=== PATIENT | male | born 1955 | race Caucasian/White ===

== ENCOUNTER → 2016-03-20 | Outpatient (CLI) | payer BC ==
[~2016-03-20] VITALS: Ht 177.8 cm; Wt 94.8 kg
[~2016-03-20] MED LIST: CLARITIN10 M3 PO; DEXILANT60 MG PO; DIOVAN80 MG PO; ENDOCET 5-3251 EACH PO; FLONASE16 G1 BOTH NARES; HYDROCODONE CO120 ML PO; LO-DOSE ASPIRIN81 M1 PO; LOSARTAN POTAS100 MG PO; NEXIUM40 MG PO; NORVASC5 MG PO; PROAIR HFA8.5 GM IH; SYMBICORT60 INHALAT IH; TUDORZA PRESS400 MCG IH; VENTOLIN HFA18 GM IH; ZOLOFT50 MG PO
[2016-03-20 12:35] LABS: POINT-OF-CARE METER ID UU13113694
[2016-03-20 15:02] LABS: POINT-OF-CARE METER ID UU13113675
== END | disposition home or self-care (01) ==
LOC: AMB 11:46
PROVIDERS: Internal Medicine Gastroenterology
DX: K31.7 Polyp of stomach and duodenum (principal); E11.9 Type 2 diabetes mellitus without complications; K21.9 Gastro-esophageal reflux disease without esophagitis; R05 Cough; Z85.060 Personal history of malignant carcinoid tumor of small intestine; Z85.020 Personal history of malignant carcinoid tumor of stomach; J44.9 Chronic obstructive pulmonary disease, unspecified; I10 Essential (primary) hypertension; Z79.82 Long term (current) use of aspirin; J30.9 Allergic rhinitis, unspecified; Z88.0 Allergy status to penicillin; Z88.8 Allergy status to other drugs, medicaments and biological substances
CPT/HCPCS: 82948; 86316 90; 88305; C1726; J0330; J2405; J3010

== ENCOUNTER 2017-03-11 20:50 | Emergency (ER) | payer OTHER ==
[~2017-03-11] VITALS: Ht 177.8 cm; Wt 94.1 kg
[2017-03-12] MEDS ORDERED: FLEXERIL10 MG PO (00:13)
[2017-03-12] MEDS ORDERED: NAPROSYN500 MG PO (00:13)
[2017-03-12 00:44] VITALS: BP 139/81
== END 2017-03-12 00:44 | disposition home or self-care (01) ==
LOC: EME 20:50
DX: M54.2 Cervicalgia (principal); K21.9 Gastro-esophageal reflux disease without esophagitis; I10 Essential (primary) hypertension; J45.909 Unspecified asthma, uncomplicated; V53.5XXA Driver of pick-up truck or van injured in collision with car, pick-up truck or van in traffic accident, initial encounter; Y92.410 Unspecified street and highway as the place of occurrence of the external cause; Z79.82 Long term (current) use of aspirin; Z79.891 Long term (current) use of opiate analgesic; Z90.49 Acquired absence of other specified parts of digestive tract
CPT/HCPCS: 72040; 99281; 99283

== ENCOUNTER 2017-03-25 19:41 | Emergency (ER) | payer BC ==
[~2017-03-25] VITALS: Ht 177.8 cm; Wt 93.3 kg
[~2017-03-25 19:41] MED LIST changes: +FLEXERIL10 MG PO; +NAPROSYN500 MG PO
[2017-03-25 20:31] LABS: HEMATOCRIT 47.4 % (38.0-50.0); HEMOGLOBIN 16.8 G/DL (12.5-16.6); MCH 29.7 PG (29.0-34.0); MCHC 35.4 G/DL (30.0-36.0); MCV 83.7 FL (86-99); PLATELET COUNT 186 K/uL (156-360); RBC DIS.WIDTH-CV 12.2 % (11.8-14.6); RBC DIS.WIDTH-SD 36.9 % (39-53); RED BLOOD COUNT 5.66 M/uL (4.00-5.50); WHITE BLOOD COUNT 10.2 K/uL (4.1-10.2)
[2017-03-25 20:37] LABS: APPEARANCE CLEAR ((CLEAR)); BILIRUBIN NEGATIVE; BLOOD NEGATIVE; COLOR STRAW ((YELLOW)); GLUCOSE (STRIP) >=500; KETONES NEGATIVE; LEUKOCYTES NEGATIVE; NITRITE NEGATIVE; PROTEIN (STRIP) NEGATIVE; SPECIFIC GRAVITY 1.031 (1.000-1.030); UCUL ADDED? NO; UROBILINOGEN 0.2 MG/DL (0.2-1.0)
[2017-03-25 20:42] LABS: ALBUMIN 4.3 g/dL (3.2-4.8); CHLORIDE 98 mEq/L (99-109); POTASSIUM 3.9 mEq/L (3.7-5.4); SODIUM 130 mEq/L (136-147)
[2017-03-25 20:45] LABS: TOTAL PROTEIN 7.1 g/dL (6.4-8.3)
[2017-03-25 20:46] LABS: TOTAL BILIRUBIN 1.1 mg/dL (0.0-1.0)
[2017-03-25 20:48] LABS: ALKALINE PHOSPHATASE 121 IU/L (3-129); CREATININE 1.6 mg/dL (0.6-1.3); GFR ESTIMATE (CALCULATED) 47 mL/min/ (58.99-99999)
[2017-03-25 20:49] LABS: UREA NITROGEN (BUN) 13 mg/dL (9-23)
[2017-03-25 20:50] LABS: AST (GOT) 35 IU/L (2-34)
[2017-03-25 20:51] LABS: ALT (GPT) 67 IU/L (3-49)
[2017-03-25 21:06] LABS: GLUCOSE 498 mg/dL (70-99)
[2017-03-25 22:45] LABS: CARBON DIOXIDE (BICARBONATE) 23.1 MEQ/L (20-31)
[2017-03-25 23:01] LABS: ALBUMIN 4.2 g/dL (3.2-4.8); CHLORIDE 102 mEq/L (99-109); POTASSIUM 3.8 mEq/L (3.7-5.4); SODIUM 131 mEq/L (136-147)
[2017-03-25 23:03] LABS: TOTAL PROTEIN 6.8 g/dL (6.4-8.3)
[2017-03-25 23:07] LABS: ALKALINE PHOSPHATASE 113 IU/L (3-129); CREATININE 1.4 mg/dL (0.6-1.3); GFR ESTIMATE (CALCULATED) 55 mL/min/ (58.99-99999)
[2017-03-25 23:08] LABS: AST (GOT) 36 IU/L (2-34); UREA NITROGEN (BUN) 15 mg/dL (9-23)
[2017-03-25 23:10] LABS: ALT (GPT) 65 IU/L (3-49)
[2017-03-25 23:19] LABS: GLUCOSE 414 mg/dL (70-99)
[2017-03-26 01:24] LABS: CHLORIDE 109 mEq/L (99-109); POTASSIUM 3.2 mEq/L (3.7-5.4)
[2017-03-26 01:25] LABS: SODIUM 138 mEq/L (136-147)
[2017-03-26 01:27] LABS: GLUCOSE 196 mg/dL (70-99)
[2017-03-26 01:29] LABS: CREATININE 1.2 mg/dL (0.6-1.3); GFR ESTIMATE (CALCULATED) > 59 mL/min/ (58.99-99999)
[2017-03-26 01:30] LABS: UREA NITROGEN (BUN) 13 mg/dL (9-23)
[2017-03-26] MEDS ORDERED: ZOFRAN4 MG PO (01:42)
[2017-03-26 02:13] VITALS: BP 126/78
== END 2017-03-26 02:17 | disposition home or self-care (01) ==
LOC: EME 19:41
PROVIDERS: Nurse Practitioner Family; Physician Assistant
DX: E11.65 Type 2 diabetes mellitus with hyperglycemia (principal); R11.2 Nausea with vomiting, unspecified; R10.9 Unspecified abdominal pain; R51 Headache; R19.7 Diarrhea, unspecified; I10 Essential (primary) hypertension; Z79.82 Long term (current) use of aspirin
CPT/HCPCS: 71046; 80048; 80053; 81003; 82010; 82803; 82948; 85027; 99281; 99285; J7030

== ENCOUNTER 2017-05-14 16:18 | Inpatient (IN) | payer BC ==
[~2017-05-14] VITALS: Ht 180.3 cm; Wt 110.0 kg
[~2017-05-14 16:18] MED LIST changes: +GLIPIZIDE XL10 MG PO; +METFORMIN HCL500 MG PO; +TRULICITY0.75 MG/0. SC; +ZOFRAN4 MG PO
[2017-05-14 17:48] LABS: HEMATOCRIT 49.5 % (38.0-50.0); MCH 29.6 PG (29.0-34.0); MCHC 34.3 G/DL (30.0-36.0); MCV 86.2 FL (86-99); PLATELET COUNT 218 K/uL (156-360); RBC DIS.WIDTH-CV 12.5 % (11.8-14.6); RBC DIS.WIDTH-SD 38.8 % (39-53); RED BLOOD COUNT 5.74 M/uL (4.00-5.50); WHITE BLOOD COUNT 16.6 K/uL (4.1-10.2)
[2017-05-14 17:57] LABS: ALBUMIN 3.9 g/dL (3.2-4.8); CHLORIDE 104 mEq/L (99-109); POTASSIUM 4.3 mEq/L (3.7-5.4); SODIUM 133 mEq/L (136-147)
[2017-05-14 17:59] LABS: GLUCOSE 288 mg/dL (70-99); TOTAL PROTEIN 6.4 g/dL (6.4-8.3)
[2017-05-14 18:01] LABS: TOTAL BILIRUBIN 1.2 mg/dL (0.0-1.0)
[2017-05-14 18:03] LABS: ALKALINE PHOSPHATASE 91 IU/L (3-129); CREATININE 2.5 mg/dL (0.6-1.3); GFR ESTIMATE (CALCULATED) 28 mL/min/ (58.99-99999)
[2017-05-14 18:04] LABS: UREA NITROGEN (BUN) 38 mg/dL (9-23)
[2017-05-14 18:05] LABS: AST (GOT) 38 IU/L (2-34)
[2017-05-14 18:06] LABS: ALT (GPT) 67 IU/L (3-49)
[2017-05-14 19:08] LABS: CARBON DIOXIDE (BICARBONATE) 19.6 MEQ/L (20-31)
[2017-05-14 19:20] LABS: APPEARANCE CLOUDY ((CLEAR)); BILIRUBIN NEGATIVE; BLOOD NEGATIVE; COLOR AMBER ((YELLOW)); GLUCOSE (STRIP) 150; KETONES NEGATIVE; LEUKOCYTES NEGATIVE; NITRITE NEGATIVE; PROTEIN (STRIP) 100; SPECIFIC GRAVITY 1.019 (1.000-1.030)
[2017-05-14 20:08] LABS: EPITHELIAL CELLS NONE SEEN /HPF; MUCUS 1+ /LPF; RED BLOOD CELLS NONE SEEN /HPF (0-5); WHITE BLOOD CELLS 0-5 /HPF (0-5)
[2017-05-14 20:09] LABS: BACTERIA 1+ /HPF; HYALINE CASTS TNTC /LPF; UCUL ADDED? NO
[2017-05-14 20:10] LABS: COARSE GRANULAR CASTS RARE /LPF
[2017-05-15 01:24] VITALS: BP 109/72
[2017-05-15 07:03] LABS: CHLORIDE 109 MEQ/L (99-109); GFR ESTIMATE (CALCULATED) 47 mL/min/ (58.99-99999); GLUCOSE 152 mg/dL (70-99); POTASSIUM 3.9 MEQ/L (3.7-5.4); SODIUM 137 MEQ/L (136-147); UREA NITROGEN (BUN) 37 mg/dL (9-23)
[2017-05-15 07:05] LABS: CREATININE 1.6 MG/DL (0.6-1.3)
[2017-05-15 07:26] LABS: BASOPHIL (%) 0.5 % (0-1); BASOPHIL COUNT 0.1 K/uL (0-0.1); EOSINOPHIL (%) 1.5 % (0-5); EOSINOPHIL COUNT 0.2 K/uL (0-0.3); HEMATOCRIT 43.9 % (38.0-50.0); IMMATURE GRANULOCYTE (%) 0.8 % (0.0-0.7); LYMPHOCYTE (%) 17.3 % (15-42); LYMPHOCYTE COUNT 1.7 K/uL (1.0-2.8); MCH 29.6 PG (29.0-34.0); MCHC 34.2 G/DL (30.0-36.0); MCV 86.6 FL (86-99); MONOCYTE (%) 10.8 % (3-12); MONOCYTE COUNT 1.1 K/uL (0-0.8); NEUTROPHIL (%) 69.1 % (45-76); NEUTROPHIL COUNT 6.8 K/uL (1.8-6.4); PLATELET COUNT 201 K/uL (156-360); RBC DIS.WIDTH-CV 12.6 % (11.8-14.6); RBC DIS.WIDTH-SD 39.4 % (39-53); RED BLOOD COUNT 5.07 M/uL (4.00-5.50); WHITE BLOOD COUNT 9.9 K/uL (4.1-10.2)
[2017-05-15 08:21] VITALS: BP 118/75
[2017-05-15 12:25] VITALS: BP 120/72
[2017-05-15 16:35] VITALS: BP 132/71
[2017-05-15 20:03] VITALS: BP 134/76
[2017-05-16 04:14] VITALS: BP 135/78
[2017-05-16 06:56] LABS: BASOPHIL (%) 0.4 % (0-1); EOSINOPHIL (%) 0.9 % (0-5); EOSINOPHIL COUNT 0.1 K/uL (0-0.3); HEMATOCRIT 45.5 % (38.0-50.0); HEMOGLOBIN 15.2 G/DL (12.5-16.6); IMMATURE GRANULOCYTE (%) 0.5 % (0.0-0.7); LYMPHOCYTE (%) 9.7 % (15-42); MCHC 33.4 G/DL (30.0-36.0); MCV 86.7 FL (86-99); MONOCYTE (%) 9.9 % (3-12); NEUTROPHIL (%) 78.6 % (45-76); PLATELET COUNT 198 K/uL (156-360); RBC DIS.WIDTH-CV 12.4 % (11.8-14.6); RBC DIS.WIDTH-SD 39.1 % (39-53); RED BLOOD COUNT 5.25 M/uL (4.00-5.50); WHITE BLOOD COUNT 10.1 K/uL (4.1-10.2)
[2017-05-16 07:05] VITALS: BP 138/84
[2017-05-16 07:18] LABS: ALBUMIN 3.8 G/DL (3.2-4.8); ALKALINE PHOSPHATASE 73 IU/L (3-129); ALT (GPT) 41 IU/L (3-49); AST (GOT) 24 IU/L (2-34); CHLORIDE 107 MEQ/L (99-109); GLUCOSE 188 mg/dL (70-99); POTASSIUM 3.4 MEQ/L (3.7-5.4); SODIUM 141 MEQ/L (136-147); TOTAL BILIRUBIN 0.8 MG/DL (0.0-1.0); TOTAL PROTEIN 6.1 G/DL (6.4-8.3); UREA NITROGEN (BUN) 22 mg/dL (9-23)
[2017-05-16 07:26] LABS: GFR ESTIMATE (CALCULATED) > 59 mL/min/ (58.99-99999)
[2017-05-16 09:30] LABS: MAGNESIUM 1.8 mg/dl (1.3-2.7)
[2017-05-16 11:36] VITALS: BP 144/83
[2017-05-16 15:42] VITALS: BP 141/82
[2017-05-16 21:00] VITALS: BP 134/88
[2017-05-16 22:38] LABS: C DIFF TOXIN NEGATIVE (NEGATIVE)
[2017-05-17 05:40] VITALS: BP 119/79
[2017-05-17 06:40] LABS: BASOPHIL (%) 0.4 % (0-1); BASOPHIL COUNT 0.1 K/uL (0-0.1); EOSINOPHIL (%) 0.3 % (0-5); HEMATOCRIT 48.5 % (38.0-50.0); IMMATURE GRANULOCYTE (%) 0.6 % (0.0-0.7); LYMPHOCYTE (%) 8.5 % (15-42); MCH 28.6 PG (29.0-34.0); MCV 86.8 FL (86-99); MONOCYTE (%) 10.2 % (3-12); MONOCYTE COUNT 1.2 K/uL (0-0.8); NEUTROPHIL COUNT 9.3 K/uL (1.8-6.4); PLATELET COUNT 241 K/uL (156-360); RBC DIS.WIDTH-CV 12.2 % (11.8-14.6); RBC DIS.WIDTH-SD 38.8 % (39-53); RED BLOOD COUNT 5.59 M/uL (4.00-5.50); WHITE BLOOD COUNT 11.7 K/uL (4.1-10.2)
[2017-05-17 07:01] LABS: CHLORIDE 105 MEQ/L (99-109); POTASSIUM 3.6 MEQ/L (3.7-5.4); SODIUM 147 MEQ/L (136-147)
[2017-05-17 07:19] LABS: ALKALINE PHOSPHATASE 76 IU/L (3-129); ALT (GPT) 36 IU/L (3-49); AST (GOT) 19 IU/L (2-34); CREATININE 1.3 MG/DL (0.6-1.3); GFR ESTIMATE (CALCULATED) > 59 mL/min/ (58.99-99999); GLUCOSE 225 mg/dL (70-99); TOTAL BILIRUBIN 0.7 MG/DL (0.0-1.0); TOTAL PROTEIN 6.6 G/DL (6.4-8.3); UREA NITROGEN (BUN) 21 mg/dL (9-23)
[2017-05-17 08:10] VITALS: BP 134/88
[2017-05-17 09:11] LABS: HEMOGLOBIN A1c (GLYCOHEMOGLOB) 9.3 % (Below 5.7)
[2017-05-17] MEDS ORDERED: TRULICITY0.75 MG/0. SC (10:42)
[2017-05-17] MEDS ORDERED: GLUCOPHAGE500 MG PO (10:43)
[2017-05-17] MEDS ORDERED: NEXIUM40 MG PO (10:44)
[2017-05-17] MEDS ORDERED: GLUCOTROL XL10 MG PO (10:44)
[2017-05-17] MEDS ORDERED: PROAIR HFA8.5 GM IH (10:44)
[2017-05-17] MEDS ORDERED: ZOLOFT100 MG PO (10:44)
[2017-05-17] MEDS ORDERED: FLONASE16 G1 BOTH NARES (10:45)
[2017-05-17] MEDS ORDERED: NORVASC5 MG PO (10:45)
[2017-05-17] MEDS ORDERED: LO-DOSE ASPIRIN81 M2 PO (10:45)
[2017-05-17] MEDS ORDERED: COZAAR100 MG PO (10:45)
[2017-05-17 11:32] VITALS: BP 130/82
[2017-05-17 16:03] VITALS: BP 129/78
[2017-05-17 19:20] VITALS: BP 136/84
[2017-05-18 00:10] VITALS: BP 137/80
[2017-05-18 06:45] LABS: BASOPHIL (%) 0.4 % (0-1); BASOPHIL COUNT 0.1 K/uL (0-0.1); EOSINOPHIL (%) 0.5 % (0-5); EOSINOPHIL COUNT 0.1 K/uL (0-0.3); HEMATOCRIT 47.4 % (38.0-50.0); HEMOGLOBIN 16.3 G/DL (12.5-16.6); IMMATURE GRANULOCYTE (%) 0.6 % (0.0-0.7); LYMPHOCYTE (%) 10.3 % (15-42); LYMPHOCYTE COUNT 1.3 K/uL (1.0-2.8); MCH 29.7 PG (29.0-34.0); MCHC 34.4 G/DL (30.0-36.0); MCV 86.5 FL (86-99); MONOCYTE (%) 8.1 % (3-12); NEUTROPHIL (%) 80.1 % (45-76); NEUTROPHIL COUNT 10.3 K/uL (1.8-6.4); PLATELET COUNT 261 K/uL (156-360); RBC DIS.WIDTH-CV 11.9 % (11.8-14.6); RBC DIS.WIDTH-SD 38.3 % (39-53); RED BLOOD COUNT 5.48 M/uL (4.00-5.50); WHITE BLOOD COUNT 12.9 K/uL (4.1-10.2)
[2017-05-18 07:13] LABS: CHLORIDE 103 MEQ/L (99-109); CREATININE 1.3 MG/DL (0.6-1.3); GFR ESTIMATE (CALCULATED) > 59 mL/min/ (58.99-99999); GLUCOSE 217 mg/dL (70-99); MAGNESIUM 1.8 mg/dl (1.3-2.7); POTASSIUM 3.4 MEQ/L (3.7-5.4); SODIUM 140 MEQ/L (136-147); UREA NITROGEN (BUN) 21 mg/dL (9-23)
[2017-05-18 07:31] VITALS: BP 130/79
[2017-05-18 11:56] VITALS: BP 133/71
[2017-05-18 16:19] VITALS: BP 140/75
[2017-05-18 19:45] VITALS: BP 134/86
[2017-05-19 06:45] LABS: BASOPHIL (%) 0.7 % (0-1); BASOPHIL COUNT 0.1 K/uL (0-0.1); EOSINOPHIL (%) 3.5 % (0-5); EOSINOPHIL COUNT 0.3 K/uL (0-0.3); HEMATOCRIT 40.3 % (38.0-50.0); IMMATURE GRANULOCYTE (%) 0.7 % (0.0-0.7); LYMPHOCYTE (%) 24.3 % (15-42); LYMPHOCYTE COUNT 1.8 K/uL (1.0-2.8); MCHC 33.5 G/DL (30.0-36.0); MCV 86.5 FL (86-99); MONOCYTE (%) 9.6 % (3-12); MONOCYTE COUNT 0.7 K/uL (0-0.8); NEUTROPHIL (%) 61.2 % (45-76); NEUTROPHIL COUNT 4.5 K/uL (1.8-6.4); RBC DIS.WIDTH-SD 37.6 % (39-53); RED BLOOD COUNT 4.66 M/uL (4.00-5.50); WHITE BLOOD COUNT 7.4 K/uL (4.1-10.2)
[2017-05-19 06:47] LABS: HEMOGLOBIN 13.5 G/DL (12.5-16.6); PLATELET COUNT 178 K/uL (156-360)
[2017-05-19 07:24] LABS: CHLORIDE 102 MEQ/L (99-109); CREATININE 1.2 MG/DL (0.6-1.3); GFR ESTIMATE (CALCULATED) > 59 mL/min/ (58.99-99999); GLUCOSE 126 mg/dL (70-99); MAGNESIUM 1.7 mg/dl (1.3-2.7); POTASSIUM 3.4 MEQ/L (3.7-5.4); SODIUM 139 MEQ/L (136-147); UREA NITROGEN (BUN) 14 mg/dL (9-23)
[2017-05-19 07:31] LABS: PLAT.SUFFICIENCY ADEQUATE
[2017-05-19 07:39] VITALS: BP 122/64
== END 2017-05-19 15:10 | disposition home or self-care (01) | DRG 683 ==
LOC: EME 16:18 → 5SOUTH 23:41 → EDOF 23:41 → ENRESERV 23:44 → 5SOUTH 05-15 01:23 → ENPENDDIS 05-19 13:44 → 5SOUTH 05-19 15:10
PROVIDERS: Hospitalist; Internal Medicine Gastroenterology; Physician Assistant
DX: N17.9 Acute kidney failure, unspecified (principal); K56.600 Partial intestinal obstruction, unspecified as to cause; I95.9 Hypotension, unspecified; E87.2 Acidosis; I10 Essential (primary) hypertension; E78.5 Hyperlipidemia, unspecified; D45 Polycythemia vera; K76.0 Fatty (change of) liver, not elsewhere classified; K21.9 Gastro-esophageal reflux disease without esophagitis; E86.0 Dehydration; E66.9 Obesity, unspecified; Z68.33 Body mass index [BMI] 33.0-33.9, adult; Z86.010 Personal history of colon polyps; E86.1 Hypovolemia; E11.65 Type 2 diabetes mellitus with hyperglycemia; Z90.49 Acquired absence of other specified parts of digestive tract; Z82.49 Family history of ischemic heart disease and other diseases of the circulatory system
CPT/HCPCS: 71045; 74018; 74176; 80048; 80053; 81003; 82010; 82803; 82948; 83036; 83605; 83630; 83735; 85025; 85027; 87329; 87493; 87502; 87506; 93005; 99195; 99202; 99281; 99285; C9113; J1170; J1650; J1815; J1885; J2405; J3010; J7030

== ENCOUNTER 2017-05-31 01:01 | Emergency (ER) | payer BC ==
[~2017-05-31] VITALS: Ht 177.8 cm; Wt 87.1 kg
[~2017-05-31 01:01] MED LIST changes: +COZAAR100 MG PO; +GLUCOPHAGE500 MG PO; +GLUCOTROL XL10 MG PO; +LO-DOSE ASPIRIN81 M2 PO; +ZOLOFT100 MG PO
[2017-05-31 01:44] LABS: ALBUMIN 4.3 g/dL (3.2-4.8); CHLORIDE 109 mEq/L (99-109); POTASSIUM 3.9 mEq/L (3.7-5.4); SODIUM 136 mEq/L (136-147)
[2017-05-31 01:47] LABS: BASOPHIL (%) 0.8 % (0-1); BASOPHIL COUNT 0.1 K/uL (0-0.1); EOSINOPHIL (%) 2.9 % (0-5); EOSINOPHIL COUNT 0.3 K/uL (0-0.3); GLUCOSE 156 mg/dL (70-99); HEMATOCRIT 44.3 % (38.0-50.0); HEMOGLOBIN 15.6 G/DL (12.5-16.6); IMMATURE GRANULOCYTE (%) 0.5 % (0.0-0.7); LYMPHOCYTE (%) 23.2 % (15-42); MCH 29.6 PG (29.0-34.0); MCHC 35.2 G/DL (30.0-36.0); MCV 84.1 FL (86-99); MONOCYTE (%) 8.9 % (3-12); MONOCYTE COUNT 0.8 K/uL (0-0.8); NEUTROPHIL (%) 63.7 % (45-76); NEUTROPHIL COUNT 5.5 K/uL (1.8-6.4); PLATELET COUNT 243 K/uL (156-360); RBC DIS.WIDTH-SD 36.2 % (39-53); RED BLOOD COUNT 5.27 M/uL (4.00-5.50); TOTAL PROTEIN 7.1 g/dL (6.4-8.3); WHITE BLOOD COUNT 8.6 K/uL (4.1-10.2)
[2017-05-31 01:49] LABS: TOTAL BILIRUBIN 0.5 mg/dL (0.0-1.0)
[2017-05-31 01:50] LABS: ALKALINE PHOSPHATASE 85 IU/L (3-129); CREATININE 1.1 mg/dL (0.6-1.3); GFR ESTIMATE (CALCULATED) > 59 mL/min/ (58.99-99999)
[2017-05-31 01:51] LABS: UREA NITROGEN (BUN) 17 mg/dL (9-23)
[2017-05-31 01:52] LABS: AST (GOT) 43 IU/L (2-34)
[2017-05-31 01:53] LABS: ALT (GPT) 63 IU/L (3-49)
[2017-05-31 01:54] LABS: LIPASE 48 U/L (1.0-51.0)
[2017-05-31 02:22] LABS: APPEARANCE CLEAR ((CLEAR)); BILIRUBIN NEGATIVE; BLOOD NEGATIVE; COLOR YELLOW ((YELLOW)); GLUCOSE (STRIP) NEGATIVE; KETONES 5; LEUKOCYTES NEGATIVE; NITRITE NEGATIVE; PROTEIN (STRIP) NEGATIVE; SPECIFIC GRAVITY 1.015 (1.000-1.030); UCUL ADDED? NO; UROBILINOGEN 0.2 MG/DL (0.2-1.0)
[2017-05-31] MEDS ORDERED: PERCOCET 5/31 TABLET PO (04:33)
[2017-05-31] MEDS ORDERED: FLAGYL500 MG PO (04:33)
[2017-05-31] MEDS ORDERED: ZOFRAN4 MG PO (04:33)
[2017-05-31] MEDS ORDERED: BACTRIM,SEPT1 TABLET PO (04:33)
[2017-05-31 05:05] VITALS: BP 114/79
== END 2017-05-31 05:17 | disposition home or self-care (01) ==
LOC: EME → EDBD 01:01 → EME 01:01
PROVIDERS: Emergency Medicine
DX: A09 Infectious gastroenteritis and colitis, unspecified (principal); E86.0 Dehydration; Z87.19 Personal history of other diseases of the digestive system; E11.9 Type 2 diabetes mellitus without complications; Z79.84 Long term (current) use of oral hypoglycemic drugs; I10 Essential (primary) hypertension; K21.9 Gastro-esophageal reflux disease without esophagitis; J45.909 Unspecified asthma, uncomplicated; Z79.82 Long term (current) use of aspirin; Z90.49 Acquired absence of other specified parts of digestive tract
CPT/HCPCS: 74177; 80053; 81003; 83605; 83690; 85025; 87493; 87506; 99281; 99285; J0696; J2405; J3010; J7030

== ENCOUNTER 2017-08-18 15:51 | Inpatient (IN) | payer BC ==
[~2017-08-18] VITALS: Ht 177.8 cm; Wt 92.4 kg
[~2017-08-18 15:51] MED LIST changes: +BACTRIM,SEPT1 TABLET PO; +FLAGYL500 MG PO; +PERCOCET 5/31 TABLET PO
[2017-08-18 16:33] LABS: APPEARANCE CLEAR ((CLEAR)); BILIRUBIN NEGATIVE; BLOOD NEGATIVE; COLOR AMBER ((YELLOW)); GLUCOSE (STRIP) NEGATIVE; KETONES 20; LEUKOCYTES NEGATIVE; NITRITE NEGATIVE; PROTEIN (STRIP) >=500; SPECIFIC GRAVITY 1.029 (1.000-1.030); UROBILINOGEN 0.2 MG/DL (0.2-1.0)
[2017-08-18 16:56] LABS: BACTERIA RARE /HPF; EPITHELIAL CELLS RARE /HPF; MUCUS 4+ /LPF; RED BLOOD CELLS 0-5 /HPF (0-5); UCUL ADDED? YES
[2017-08-18 16:58] LABS: HEMATOCRIT 49.6 % (38.0-50.0); HEMOGLOBIN 16.6 G/DL (12.5-16.6); MCH 27.3 PG (29.0-34.0); MCHC 33.5 G/DL (30.0-36.0); MCV 81.6 FL (86-99); PLATELET COUNT 243 K/uL (156-360); RBC DIS.WIDTH-CV 13.1 % (11.8-14.6); RBC DIS.WIDTH-SD 38.3 % (39-53); RED BLOOD COUNT 6.08 M/uL (4.00-5.50)
[2017-08-18 17:10] LABS: ALBUMIN 4.8 g/dL (3.2-4.8)
[2017-08-18 17:11] LABS: CHLORIDE 106 mEq/L (99-109); POTASSIUM 4.3 mEq/L (3.7-5.4); SODIUM 138 mEq/L (136-147)
[2017-08-18 17:13] LABS: GLUCOSE 162 mg/dL (70-99); TOTAL PROTEIN 8.1 g/dL (6.4-8.3)
[2017-08-18 17:16] LABS: ALKALINE PHOSPHATASE 99 IU/L (3-129)
[2017-08-18 17:17] LABS: CREATININE 1.4 mg/dL (0.6-1.3); GFR ESTIMATE (CALCULATED) 55 mL/min/ (58.99-99999)
[2017-08-18 17:18] LABS: AST (GOT) 38 IU/L (2-34); UREA NITROGEN (BUN) 13 mg/dL (9-23)
[2017-08-18 17:19] LABS: ALT (GPT) 52 IU/L (3-49)
[2017-08-18 17:20] LABS: LIPASE 19 U/L (1.0-51.0)
[2017-08-18 19:33] LABS: TROP-I INTERPRETATION NEGATIVE; TROPONIN-I < 0.01 ng/mL (0.0-0.30)
[2017-08-18 20:33] LABS: TROP-I INTERPRETATION NEGATIVE; TROPONIN-I < 0.01 ng/mL (0.0-0.30)
[2017-08-18] MEDS ORDERED: GUMMI BEAR MUL1 EACH PO (21:54)
[2017-08-19 00:35] VITALS: BP 140/90
[2017-08-19 07:23] LABS: BASOPHIL (%) 0.4 % (0-1); EOSINOPHIL (%) 2.6 % (0-5); EOSINOPHIL COUNT 0.2 K/uL (0-0.3); HEMATOCRIT 47.7 % (38.0-50.0); HEMOGLOBIN 14.9 G/DL (12.5-16.6); IMMATURE GRANULOCYTE (%) 0.5 % (0.0-0.7); LYMPHOCYTE (%) 21.1 % (15-42); LYMPHOCYTE COUNT 1.7 K/uL (1.0-2.8); MCH 26.1 PG (29.0-34.0); MCHC 31.2 G/DL (30.0-36.0); MCV 83.7 FL (86-99); MONOCYTE COUNT 0.9 K/uL (0-0.8); NEUTROPHIL (%) 64.4 % (45-76); NEUTROPHIL COUNT 5.2 K/uL (1.8-6.4); PLATELET COUNT 191 K/uL (156-360); RBC DIS.WIDTH-CV 13.2 % (11.8-14.6); RBC DIS.WIDTH-SD 40.3 % (39-53)
[2017-08-19 07:40] LABS: CHLORIDE 106 MEQ/L (99-109); CREATININE 1.2 MG/DL (0.6-1.3); GFR ESTIMATE (CALCULATED) > 59 mL/min/ (58.99-99999); GLUCOSE 130 mg/dL (70-99); POTASSIUM 4.4 MEQ/L (3.7-5.4); SODIUM 143 MEQ/L (136-147); UREA NITROGEN (BUN) 13 mg/dL (9-23)
[2017-08-19 09:23] VITALS: BP 136/84
[2017-08-19 16:22] VITALS: BP 131/85
[2017-08-19 19:53] VITALS: BP 14/85
[2017-08-19 23:49] VITALS: BP 105/56
[2017-08-20 00:34] VITALS: BP 88/52
[2017-08-20 03:35] VITALS: BP 142/87
[2017-08-20 06:38] LABS: CHLORIDE 104 MEQ/L (99-109); CREATININE 1.1 MG/DL (0.6-1.3); GFR ESTIMATE (CALCULATED) > 59 mL/min/ (58.99-99999); GLUCOSE 126 mg/dL (70-99); POTASSIUM 4.5 MEQ/L (3.7-5.4); SODIUM 138 MEQ/L (136-147); UREA NITROGEN (BUN) 15 mg/dL (9-23)
[2017-08-20 08:38] VITALS: BP 124/84
[2017-08-20 11:00] VITALS: BP 126/80
[2017-08-20 16:06] VITALS: BP 146/90
[2017-08-20 19:30] VITALS: BP 140/88
[2017-08-21 01:01] VITALS: BP 150/86
[2017-08-21 04:19] VITALS: BP 133/86
[2017-08-21 07:41] VITALS: BP 138/77
[2017-08-21 11:37] VITALS: BP 143/87
[2017-08-21 17:11] VITALS: BP 128/84
[2017-08-21 18:32] LABS: CREATININE 1.1 MG/DL (0.6-1.3); GFR ESTIMATE (CALCULATED) > 59 mL/min/ (58.99-99999); UREA NITROGEN (BUN) 13 mg/dL (9-23)
[2017-08-21 22:38] VITALS: BP 128/81
[2017-08-22 06:14] LABS: BASOPHIL (%) 0.6 % (0-1); EOSINOPHIL (%) 3.3 % (0-5); EOSINOPHIL COUNT 0.2 K/uL (0-0.3); HEMATOCRIT 42.7 % (38.0-50.0); HEMOGLOBIN 13.5 G/DL (12.5-16.6); IMMATURE GRANULOCYTE (%) 0.5 % (0.0-0.7); LYMPHOCYTE (%) 20.7 % (15-42); LYMPHOCYTE COUNT 1.4 K/uL (1.0-2.8); MCHC 31.6 G/DL (30.0-36.0); MCV 82.1 FL (86-99); MONOCYTE (%) 12.2 % (3-12); MONOCYTE COUNT 0.8 K/uL (0-0.8); NEUTROPHIL (%) 62.7 % (45-76); NEUTROPHIL COUNT 4.2 K/uL (1.8-6.4); PLATELET COUNT 165 K/uL (156-360); RBC DIS.WIDTH-CV 12.8 % (11.8-14.6); RBC DIS.WIDTH-SD 38.3 % (39-53); WHITE BLOOD COUNT 6.6 K/uL (4.1-10.2)
[2017-08-22 06:42] LABS: CHLORIDE 104 MEQ/L (99-109); CREATININE 1.2 MG/DL (0.6-1.3); GFR ESTIMATE (CALCULATED) > 59 mL/min/ (58.99-99999); GLUCOSE 141 mg/dL (70-99); POTASSIUM 3.4 MEQ/L (3.7-5.4); SODIUM 141 MEQ/L (136-147); UREA NITROGEN (BUN) 10 mg/dL (9-23)
[2017-08-22 06:51] VITALS: BP 130/79
[2017-08-22 16:00] VITALS: BP 142/76
[2017-08-23 00:12] VITALS: BP 152/89
[2017-08-23 06:51] LABS: CHLORIDE 108 MEQ/L (99-109); GFR ESTIMATE (CALCULATED) > 59 mL/min/ (58.99-99999); GLUCOSE 117 mg/dL (70-99); POTASSIUM 3.9 MEQ/L (3.7-5.4); SODIUM 141 MEQ/L (136-147); UREA NITROGEN (BUN) 6 mg/dL (9-23)
[2017-08-23 08:00] VITALS: BP 151/96
[2017-08-23 11:41] VITALS: BP 138/83
[2017-08-23 15:39] VITALS: BP 131/76
[2017-08-24 00:49] VITALS: BP 117/65
[2017-08-24 08:18] VITALS: BP 120/81
== END 2017-08-24 11:41 | disposition home or self-care (01) | DRG 389 ==
LOC: EME 15:51 → 5EAST 23:57 → EDOF 23:57 → ENRESERV 23:59 → 5EAST 08-19 01:42
PROVIDERS: Hospitalist; Internal Medicine Gastroenterology; Physician Assistant Medical
DX: K56.600 Partial intestinal obstruction, unspecified as to cause (principal); K52.9 Noninfective gastroenteritis and colitis, unspecified; N17.9 Acute kidney failure, unspecified; E86.0 Dehydration; D12.2 Benign neoplasm of ascending colon; D12.5 Benign neoplasm of sigmoid colon; E11.65 Type 2 diabetes mellitus with hyperglycemia; K64.0 First degree hemorrhoids; K29.70 Gastritis, unspecified, without bleeding; K57.30 Diverticulosis of large intestine without perforation or abscess without bleeding; I10 Essential (primary) hypertension; E78.5 Hyperlipidemia, unspecified; K76.0 Fatty (change of) liver, not elsewhere classified; D45 Polycythemia vera; K21.9 Gastro-esophageal reflux disease without esophagitis; J45.909 Unspecified asthma, uncomplicated; M19.90 Unspecified osteoarthritis, unspecified site; R79.89 Other specified abnormal findings of blood chemistry; Z85.030 Personal history of malignant carcinoid tumor of large intestine; Z86.010 Personal history of colon polyps; Z79.82 Long term (current) use of aspirin; Z79.84 Long term (current) use of oral hypoglycemic drugs; Z90.49 Acquired absence of other specified parts of digestive tract
CPT/HCPCS: 71045; 74018; 74019; 74021; 74177; 80048; 80053; 81003; 82565; 82948; 83690; 84484; 84520; 85025; 85027; 87086; 87493; 87506; 88305; 93005; 94799; 99281; 99284; J1170; J1650; J1815; J2250; J2270; J2405; J2765; J7030; J7042; J7120; S0028; S0074